=== PATIENT | female | born 1960 | race Caucasian/White ===

== ENCOUNTER 2024-12-21 18:05 | Emergency (ER) | payer SELFPAY ==
[~2024-12-21] VITALS: Ht 157.5 cm; Wt 90.0 kg
[2024-12-21] MEDS: IBUPROFEN 600MG TAB PO ONE (20:20)
[2024-12-21] MEDS ORDERED: TRAM50TA2 PO (20:51)
[2024-12-21] MEDS ORDERED: IBUP-1022 PO (20:51)
[2024-12-21 21:03] VITALS: BP 172/90; TEMP 96.6; O2SAT 95
[2024-12-21] MEDS: traMADol 50 MG TAB (HOME DOSE PACK) PO ONE (21:26)
== END 2024-12-21 21:50 | disposition home or self-care (01) ==
LOC: M ED 18:05
DX: S42.352A Displaced comminuted fracture of shaft of humerus, left arm, initial encounter for closed fracture (principal); W01.0XXA Fall on same level from slipping, tripping and stumbling without subsequent striking against object, initial encounter; F17.200 Nicotine dependence, unspecified, uncomplicated; Z79.1 Long term (current) use of non-steroidal anti-inflammatories (NSAID); Z79.899 Other long term (current) drug therapy; Y92.009 Unspecified place in unspecified non-institutional (private) residence as the place of occurrence of the external cause; Y93.89 Activity, other specified; Y99.9 Unspecified external cause status

== ENCOUNTER → 2025-01-02 | Day surgery (SDC) | payer MEDICAID, SELFPAY ==
[~2025-01-02] VITALS: Ht 154.9 cm; Wt 88.0 kg
[~2025-01-02] MED LIST: ACETAMINOPHEN 1000MG/100ML IV BAG As Ordered ONE; DEXTROSE 50% 50ML SYRINGE IV PRN; GLUCAGON INJ 1MG VIAL SC PRN; GLUCOSE 4 GM CHEW PO PRN; IBUP-1022 PO; LIDOCAINE 2% 100MG/5ML SDV (FOR ANES.) As Ordered ONE; LIDOCAINE W/EPINEPHRINE 1% 20ML VIAL As Ordered ONE; MIDAZOLAM INJ 2MG/2ML VIAL As Ordered ONE; NS (Normal Saline) 0.9% 1,000 ML IV SCH; ONDANSETRON 4MG 2ML VIAL As Ordered ONE; ROCURONIUM BROMIDE 50MG/5ML VIAL As Ordered ONE; TRAM50TA2 PO; dexmedeTOMIDine (4MCG/ML)200MCG/50ML BTL (PRECEDEX) As Ordered ONE; fentaNYL 100 MCG/2 ML INJECTION As Ordered ONE; propofoL 200 MG/20 ML VIAL As Ordered ONE
[2025-01-02 09:23] VITALS: BP 193/99; TEMP 97.8; O2SAT 97
[2025-01-02] MEDS: INSULIN LISPRO (NovoLOG) PER UNIT SC PRN (09:35)
[2025-01-02 09:56] LABS: BASO # 0.1 10^3/uL (0.0-0.2); BASO % 0.5 % (0.0-1.0); EOS # 0.2 10^3/uL (0.0-0.5); EOS % 1.4 % (0.0-3.0); HEMATOCRIT 37.6 % (36.0-47.0); HEMOGLOBIN 12.8 g/dl (12.0-15.5); LYMPH # 1.6 10^3/uL (1.5-5.0); LYMPH % 14.8 % (24.0-44.0); MEAN CORPUSCULAR HEMOGLOBIN 29.1 pg (27.0-33.0); MEAN CORPUSCULAR VOLUME 85.5 fl (80.0-96.0); MONO # 0.6 10^3/uL (0.0-0.8); MONO % 5.3 % (2.0-8.0); NEUTROPHILS % 76.8 % (36.0-66.0); PLATELET COUNT, AUTOMATED 340 10^3/uL (150-450); WHITE BLOOD COUNT 10.5 10^3/uL (4.0-10.0)
[2025-01-02 10:07] LABS: HEMOGLOBIN A1c 12.1 % (4.0-6.0)
[2025-01-02 10:30] LABS: BLOOD UREA NITROGEN 15 MG/DL (9-23); CALCIUM LEVEL 8.7 MG/DL (8.3-10.6); CARBON DIOXIDE LEVEL 22 MMOL/L (20-31); CHLORIDE LEVEL 102 MMOL/L (98-107); CREATININE FOR GFR 0.63 MG/DL (0.55-1.30); GLOMERULAR FILTRATION RATE > 60.0 (>45); GLUCOSE, FASTING 319 MG/DL (74-106); SODIUM LEVEL 136 MMOL/L (136-145)
== END | disposition home or self-care (01) ==
LOC: M SDC 08:03
PROVIDERS: ATTEND Orthopaedic Surgery Hand Surgery
DX: S42.202A Unspecified fracture of upper end of left humerus, initial encounter for closed fracture (principal); Z53.20 Procedure and treatment not carried out because of patient's decision for unspecified reasons; X58.XXXA Exposure to other specified factors, initial encounter; Y93.9 Activity, unspecified
CPT/HCPCS: 36415; 80048; 83036; 85025; 93005; J1815

== ENCOUNTER → 2025-01-10 | Outpatient (CLI) | payer MEDICAID, SELFPAY ==
[~2025-01-10] MED LIST changes: -ACETAMINOPHEN 1000MG/100ML IV BAG As Ordered ONE; -DEXTROSE 50% 50ML SYRINGE IV PRN; -GLUCAGON INJ 1MG VIAL SC PRN; -GLUCOSE 4 GM CHEW PO PRN; -LIDOCAINE 2% 100MG/5ML SDV (FOR ANES.) As Ordered ONE; -LIDOCAINE W/EPINEPHRINE 1% 20ML VIAL As Ordered ONE; -MIDAZOLAM INJ 2MG/2ML VIAL As Ordered ONE; -NS (Normal Saline) 0.9% 1,000 ML IV SCH; -ONDANSETRON 4MG 2ML VIAL As Ordered ONE; -ROCURONIUM BROMIDE 50MG/5ML VIAL As Ordered ONE; -dexmedeTOMIDine (4MCG/ML)200MCG/50ML BTL (PRECEDEX) As Ordered ONE; -fentaNYL 100 MCG/2 ML INJECTION As Ordered ONE; -propofoL 200 MG/20 ML VIAL As Ordered ONE
== END ==
LOC: M SOG 07:53
PROVIDERS: ATTEND Physician Assistant
DX: S42.222A 2-part displaced fracture of surgical neck of left humerus, initial encounter for closed fracture (principal); Z53.9 Procedure and treatment not carried out, unspecified reason

== ENCOUNTER → 2025-01-17 | Outpatient (CLI) | payer MEDICAID, SELFPAY | LOC: M SOG 08:00 | PROVIDERS: ATTEND Physician Assistant | DX: S42.222A 2-part displaced fracture of surgical neck of left humerus, initial encounter for closed fracture (principal) ==

== ENCOUNTER → 2025-02-13 | Outpatient (CLI) | payer MEDICAID, SELFPAY, OTHER | LOC: M SOG 07:54 | PROVIDERS: ATTEND Physician Assistant | DX: S42.222A 2-part displaced fracture of surgical neck of left humerus, initial encounter for closed fracture (principal); W18.30XA Fall on same level, unspecified, initial encounter; Y92.009 Unspecified place in unspecified non-institutional (private) residence as the place of occurrence of the external cause ==

== ENCOUNTER → 2025-02-15 | Outpatient (REF) | payer OTHER ==
[2025-02-15 14:38] LABS: BASO % 0.5 % (0.0-1.0); EOS # 0.2 10^3/uL (0.0-0.5); EOS % 2.6 % (0.0-3.0); HEMATOCRIT 39.8 % (36.0-47.0); HEMOGLOBIN 12.8 g/dl (12.0-15.5); LYMPH # 1.7 10^3/uL (1.5-5.0); LYMPH % 19.9 % (24.0-44.0); MEAN CORPUSCULAR HGB CONC 32.2 g/dl (32.0-36.5); MEAN CORPUSCULAR VOLUME 90.2 fl (80.0-96.0); MONO # 0.6 10^3/uL (0.0-0.8); MONO % 7.2 % (2.0-8.0); NEUTROPHILS # 5.9 10^3/uL (1.5-8.5); NEUTROPHILS % 69.2 % (36.0-66.0); PLATELET COUNT, AUTOMATED 352 10^3/uL (150-450); RED BLOOD COUNT 4.41 10^6/uL (4.00-5.40); WHITE BLOOD COUNT 8.5 10^3/uL (4.0-10.0)
[2025-02-15 15:06] LABS: ALBUMIN 3.7 G/DL (3.2-5.2); ALKALINE PHOSPHATASE 54 U/L (35-104); ALT/SGPT 17 U/L (7.0-40); AST/SGOT 14 U/L (<34); BILIRUBIN,TOTAL 0.3 MG/DL (0.3-1.2); BLOOD UREA NITROGEN 21 MG/DL (9-23); CALCIUM LEVEL 9.6 MG/DL (8.3-10.6); CARBON DIOXIDE LEVEL 23 MMOL/L (20-31); CHLORIDE LEVEL 103 MMOL/L (98-107); CHOLESTEROL LEVEL 214 MG/DL (<200); CREATININE FOR GFR 0.75 MG/DL (0.55-1.30); GLOMERULAR FILTRATION RATE > 60.0 (>45); GLUCOSE, FASTING 126 MG/DL (74-106); HDL CHOLESTEROL 29.7 MG/DL (>40); LDL CHOLESTEROL 145.9 MG/DL (<100); NON-HDL-C 184.3 MG/DL; POTASSIUM SERUM 4.5 MMOL/L (3.5-5.1); SODIUM LEVEL 140 MMOL/L (136-145); TOTAL PROTEIN 7.9 G/DL (5.7-8.2); TRIGLYCERIDES LEVEL 192 MG/DL (<150)
[2025-02-15 15:11] LABS: THYROID STIMULATING HORMONE 1.623 uIU/ML (0.55-4.78)
[2025-02-15 15:12] LABS: TOTAL 25(OH) VITAMIN D 14.7 NG/ML (20.0-100.0)
== END ==
LOC: M SFHCADAM 07:58
PROVIDERS: ATTEND Physician Assistant Medical
DX: E11.65 Type 2 diabetes mellitus with hyperglycemia (principal); I10 Essential (primary) hypertension; E66.01 Morbid (severe) obesity due to excess calories; F17.210 Nicotine dependence, cigarettes, uncomplicated

== ENCOUNTER → 2025-04-15 | Outpatient (CLI) | payer OTHER | LOC: M SOG 07:11 | PROVIDERS: ATTEND Physician Assistant | DX: M25.512 Pain in left shoulder (principal) ==

== ENCOUNTER → 2025-08-06 | Outpatient (REF) | payer MEDICARE, OTHER ==
[~2025-08-06] MED LIST changes: -IBUP-1022 PO; +IBUP600T42 PO
[2025-08-06 20:02] LABS: FREE T4 1.32 NG/DL (0.89-1.76)
[2025-08-06 20:03] LABS: BASO # 0.0 10^3/uL (0.0-0.2); BASO % 0.4 % (0.0-1.0); EOS # 0.2 10^3/uL (0.0-0.5); EOS % 2.0 % (0.0-3.0); LYMPH # 2.3 10^3/uL (1.5-5.0); LYMPH % 22.6 % (24.0-44.0); MONO # 0.7 10^3/uL (0.0-0.8); MONO % 6.7 % (2.0-8.0); NEUTROPHILS # 6.8 10^3/uL (1.5-8.5); NEUTROPHILS % 68.0 % (36.0-66.0); PLATELET COUNT, AUTOMATED 331 10^3/uL (150-450)
[2025-08-06 20:06] LABS: TOTAL 25(OH) VITAMIN D 17.5 NG/ML (20.0-100.0)
[2025-08-06 20:10] LABS: ALT/SGPT 18.0 U/L (7.0-40); AST/SGOT 17.0 U/L (<34); CALCIUM LEVEL 10.2 MG/DL (8.3-10.6); CARBON DIOXIDE LEVEL 26.0 MMOL/L (20-31); CHLORIDE LEVEL 104.0 MMOL/L (98-107); CHOLESTEROL LEVEL 132.0 MG/DL (<200); CHOLESTEROL RISK RATIO 2.93 (<5); CREATININE FOR GFR 0.78 MG/DL (0.55-1.30); GLOMERULAR FILTRATION RATE 84.2 (>45); LDL CHOLESTEROL 47.6 MG/DL (<100); NON-HDL-C 87.0 MG/DL; POTASSIUM SERUM 5.0 MMOL/L (3.5-5.1); SODIUM LEVEL 141.0 MMOL/L (136-145); TRIGLYCERIDES LEVEL 197.0 MG/DL (<150)
[2025-08-06 20:30] LABS: ESTIMATED AVERAGE GLUCOSE 128.0 MG/DL (60-110)
== END ==
LOC: M SFHCADAM 13:50
PROVIDERS: ATTEND Physician Assistant Medical
DX: E78.2 Mixed hyperlipidemia (principal); I10 Essential (primary) hypertension; E11.65 Type 2 diabetes mellitus with hyperglycemia; E66.01 Morbid (severe) obesity due to excess calories

== ENCOUNTER → 2025-10-17 | Outpatient (CLI) | payer MEDICARE, OTHER | LOC: M SOG 07:41 | PROVIDERS: ATTEND Physician Assistant | DX: Z53.9 Procedure and treatment not carried out, unspecified reason (principal) ==